=== PATIENT | male | born 1965 | race African-American/Black ===

== ENCOUNTER 2022-11-29 20:22 | Emergency (ER) | payer MEDICAID, OTHER ==
[2022-11-29] MEDS ORDERED: HYDROcodone/Acetaminophen 5/325 mg Tablet ONE (20:56)
[2022-11-29] MEDS ORDERED: Ketorolac Tromethamine 30 MG/ML VIAL ONE (21:39)
== END 2022-11-29 21:52 | disposition home or self-care (01) ==
LOC: CSHERS 20:22
DX: S62.666B Nondisplaced fracture of distal phalanx of right little finger, initial encounter for open fracture (principal); W26.8XXA Contact with other sharp object(s), not elsewhere classified, initial encounter
CPT/HCPCS: 96372; J1885

== ENCOUNTER 2023-06-17 08:43 | Emergency (ER) | payer OTHER ==
[2023-06-17] MEDS ORDERED: HYDROcodone/Acetaminophen 5/325 mg Tablet ONE (09:33)
[2023-06-17 10:03] LABS: #Eosinphils 0.1 10x3/uL (0.0-0.5); #Monocytes 0.5 10x3/uL (0.0-1.1); #Neutrophils 2.3 10x3/uL (1.5-8.4); %Basophils 0.9 % (0.0-2.0); %Eosinophils 1.7 % (0.0-6.0); %Lymphocytes 30.9 % (18.0-47.0); %Monocytes 11.8 % (0.0-10.0); %Neutrophils 54.2 % (40.0-75.0); Hematocrit 45.3 % (38.8-50.0); Hemoglobin 14.7 g/dL (13.5-17.5); Mean Corpuscular HGB CONC 32.5 g/dL (32.0-36.0); Mean Corpuscular Hemoglobin 28.9 pg (27.0-33.0); Mean Platelet Volume 10.4 fl (7.4-10.4); Platelet Count 205 10x3/uL (150-450); RBC Distribution Width 13.7 % (11.5-14.5); Red Blood Cell (RBC) Count 5.09 10x6/uL (4.32-5.72); White Blood Cell (WBC) Count 4.2 10x3/uL (3.5-10.5)
[2023-06-17 10:25] LABS: ALT (SGPT) 14 U/L (8-55); AST (SGOT) 21 U/L (5-34); Albumin 4.1 g/dL (3.5-5.0); Alkaline Phosphatase 60 U/L (40-110); Anion Gap 14 mmol/L (10-20); BUN (Urea Nitrogen) 14 mg/dL (8.4-25.7); Bilirubin, Total 0.4 mg/dL (0.2-1.2); Calc. Creatinine Clearance 0 mL/min (70-130); Calcium 8.7 mg/dL (7.8-10.44); Carbon Dioxide 23 mmol/L (22-29); Chloride 106 mmol/L (98-107); Estimated GFR 81; Globulin 2.6 g/dL (2.4-3.5); Glucose 87 mg/dL (70-105); Magnesium 2.1 mg/dL (1.6-2.6); Potassium 4.4 mmol/L (3.5-5.1); Protein, Total 6.7 g/dL (6.0-8.3); Sodium 139 mmol/L (136-145)
[2023-06-17 10:31] LABS: Troponin I Less than 0.010 ng/mL (< 0.028)
[2023-06-17] MEDS ORDERED: Lidocaine 1% PF 5 ML VIAL ONE (11:49)
== END 2023-06-17 11:15 | disposition home or self-care (01) ==
LOC: CSHERS 08:43
DX: S61.012A Laceration without foreign body of left thumb without damage to nail, initial encounter (principal); R07.89 Other chest pain; W26.8XXA Contact with other sharp object(s), not elsewhere classified, initial encounter
CPT/HCPCS: 12001; 36415; 71045; 80053; 83735; 84484; 85025; 93005; 93010

== ENCOUNTER 2024-01-25 09:42 | Emergency (ER) | payer OTHER | END 2024-01-25 10:17 | disposition home or self-care (01) | LOC: CSHERS 09:42 | DX: H92.03 Otalgia, bilateral (principal); H61.23 Impacted cerumen, bilateral; F17.210 Nicotine dependence, cigarettes, uncomplicated | CPT/HCPCS: 99282 ==

== ENCOUNTER 2024-03-20 17:44 | Emergency (ER) | payer OTHER ==
[2024-03-21 05:26] LABS: Chlam.trachomatis by PCR,Urine Not Detected (NotDetected); GC N.gonorrhoeae PCR,UrineVOID Not Detected (NotDetected)
== END 2024-03-20 18:30 | disposition home or self-care (01) ==
LOC: CSHERS 17:44
DX: Z20.2 Contact with and (suspected) exposure to infections with a predominantly sexual mode of transmission (principal); F17.210 Nicotine dependence, cigarettes, uncomplicated
CPT/HCPCS: 87491; 87591; 99283